=== PATIENT | male | born 1970 | race Caucasian/White ===

== ENCOUNTER 2023-12-16 16:39 | Outpatient (REF) | payer BC, SELFPAY ==
[2023-12-16 21:24] LABS: ALT 31 U/L (16-63); AST 17 U/L (15-37); Albumin 4.1 g/dL (3.4-5.0); Alkaline Phosphatase 81 U/L (46-116); Anion Gap 7.2 mmol/L (3-11); BUN 25 mg/dL (7-18); Bilirubin, Total 0.4 mg/dL (0.2-1.0); CO2 29.8 mmol/L (21.0-32.0); CREATININE 0.9 mg/dL (0.70-1.30); Calcium 8.9 mg/dL (8.5-10.1); Calculated LDL 115 mg/dL (<100); Chloride 106 mmol/L (98-107); Cholesterol 206 mg/dL (<200); Estimated GFR 101.49 (mL/min/1.73m2); Glucose 111 mg/dL (74-106); HDL Cholesterol 63 mg/dL (40-60); Potassium 4.5 mmol/L (3.5-5.1); Sodium 143 mmol/L (136-145); Total Protein 7.1 g/dL (6.4-8.2); Triglyceride 141 mg/dL (<150)
[2023-12-19 10:06] LABS: PSA, Screening 1.7 ng/mL (<=3.5)
== END 2023-12-16 16:40 | disposition home or self-care (01) ==
LOC: NCHCN 16:39
PROVIDERS: Visit Provider Family Medicine
DX: Z13.220 Encounter for screening for lipoid disorders (principal); Z12.5 Encounter for screening for malignant neoplasm of prostate
CPT/HCPCS: 80053; 80061; 84153

== ENCOUNTER 2024-05-28 10:02 | Day surgery (SDC) | payer BC, SELFPAY ==
--- NOTE | 2024-05-27 20:02 | W.PM.DSUDISC ---
Date of service: 05/28/24 Time of Service: 12:31 Discharge Plan Disposition Patient Disposition: Home Condition: Good Discharge Details Reason For Visit: screening colonoscopy Attending Provider: Lamin Vick Primary Care Provider: Keri Elam Home Meds and New Rx's Prescriptions: Continued tadalafil 5 mg tablet 5 mg PO DAILY Discontinued bisacodyl [Dulcolax (bisacodyl)] 5 mg tablet,delayed release (DR/EC) 5 mg PO ONCE Qty: 4 0RF Rx Instructions: Take per colonoscopy instructions provided by ordering providers office polyethylene glycol 3350 17 gram/dose powder 17 g PO ONCE Qty: 238 0RF Rx Instructions: Take per colonoscopy instructions provided by ordering providers office Discharge Instructions Instructions: Colon polyps Additional Instructions: GI do, we were able to complete your colonoscopy today without much difficulty. There is a little bit of inflammation in the bottom part of your rectum that is very common after a bowel prep. Given your history, however, I did do some biopsies just to rule out other forms of inflammatory colon disease. I also found 1 small polyp, which I removed today. Like we talked about beforehand, all of the stuff will be sent off for testing, and the results of that are usually available in a week or 2. Soon as we have those, the office will be in touch with any other recommendations. If you have any questions in the meantime, please do not hesitate to call. 1. If tolerated, consume a soft, low fiber diet for 1-2 days. 2. Do not drive, drink alcohol, operate machinery, make critical decisions, or do activities that require coordination or balance for 24 hours. 3. Because air was put into your colon during the procedure, expelling air from your rectum (passing gas or farting) is normal. 4. You may not have a bowel movement for 1-3 days because of the colonoscopy prep. This is normal. 5. Go directly to the emergency room if you notice any of the following: Develop chills (warm to touch), or if you have a thermometer and your temperature is above 101 Difficulty breathing or difficultly swallowing Persistent vomiting Severe abdominal pain, other than gas cramps Severe chest pain Black, tarry stools Any bleeding ? exceeding one tablespoon 6. Call your physician if the site where your intravenous was started becomes red, swollen, painful, and warm to touch. 7. Your physician has reviewed your pre-procedure medications. Please continue to take those medications as previously ordered. You will be given specific information/education regarding any changes to your medications before leaving. Activity:: Activity as Tolerated Diet:: As Tolerated Discharge Orders Discharge Orders: Discharge Order (Routine); Ordered 05/27/24 Ordered By: Lamin Vick DS: Diagnosis Discharge Diagnosis (1) Encounter for screening colonoscopy: Status: Acute Asessment and Plan: Follow-up on biopsies and polypectomy results
--- NOTE | 2024-05-27 20:04 | W.COLOREPORT ---
Date of service: 05/28/24 Time of Service: 12:33 Colonoscopy Report Date of procedure: 05/28/24 Pre-op diagnosis general: screening colonoscopy Post-op diagnosis procedure note: other (Colon polyp) Procedure: colonoscopy with polypectomy and biopsies Surgeon: Lamin Vick Anesthesia Type: General:No Airway Estimated blood loss (mL): 5 Pathology: other (Biopsies of rectal inflammation, 0.25 cm colon polyp at 35 cm) Complications: None Disposition: same day Indications: Parag is a 53 year old man with a history of sigmoid colectomy for diverticulitis who needs a screening colonoscopy Prep: Miralax/Dulcolax Procedure Start Time: 12:07 Procedure End Time: 12:25 Retraction Time: 8 Findings: Mild proctitis, 0.25 cm colon polyp at 35 cm from the anus Procedure Description: After the induction of anesthesia, and with the patient in left lateral decubitus position, I began by performing an external anorectal exam.? Perineum and skin were normal, as was the anal verge.? There is a perianal skin tag that could be consistent with an old external hemorrhoid.? Next, I performed a digital rectal exam.? I did not appreciate any abnormal findings.? Next, I advanced a colonoscope into the rectal vault.? I performed retroflexion.? This appeared normal.? There was a little bit of inflammation in the distal rectum. The tissue was not particularly friable. Narrowband imaging was used to assist with analysis. Cold forceps biopsies were performed to rule out inflammatory bowel disease. The camera was advanced up to about 13 cm, where previous colectomy anastomosis was encountered. The anastomosis was widely patent. There is no pathology here. I was able to traverse it with ease.? The scope was noted to be in the cecum by identification of the ileocecal valve and appendiceal orifice.? I then began withdrawing the colonoscope using repeated irrigation as necessary for full evaluation of the colonic mucosa. Around 35 cm from the anal verge was a 0.25 cm flat polyp. This was removed with cold forceps without any difficulty. There was minimal bleeding. Once the scope was withdrawn to the level of the rectum, great care was taken to examine portions of the rectal folds.? Finally, the scope was withdrawn and the patient was brought to the same-day surgery recovery unit as the anesthetic wore off. ?The findings and instructions were shared with the patient prior to discharge. New[place]n Bowel Prep Newbern Bowel Prep Right Colon: 3 Left Colon: 3 Transverse Colon: 3 Total Score: 9
[2024-05-28 10:30] VITALS: BP 113/81; PULSE 61; RESP 16; TEMP 35.9; O2SAT 97
[2024-05-28] MEDS: Lactated Ringers 1,000 ML 80 ML IV (10:52)
[2024-05-28 11:38] VITALS: BMI 25.4
--- NOTE | 2024-05-28 11:38 | W.ANESPRE ---
General Info Date of Service Date Performed: 05/28/24 Height: 6 ft 1 in Weight: 87.543 kg Body Mass Index (BMI): 25.4 Surgical Procedure: Operation Date: 05/28/24 12:05 Proposed Procedure Side Surgeon p Shreyas Vick MD Meds Allergies and Home Medications Allergies Allergy/AdvReac Type Severity Reaction Status Date / Time No Known Allergies Allergy Verified 05/28/24 10:40 Home Medication ?Medication ?Instructions ?Recorded tadalafil 5 mg tablet 5 mg PO DAILY 02/01/24 Current Visit Medications: Current Medications Generic Name Dose Route Start Last Admin Trade Name Freq PRN Reason Stop Dose Admin Ringer's Solution 1,000 mls @ 80 mls/hr 05/28/24 06:00 05/28/24 10:52 IV 06/24/24 23:59 80 mls/hr INFUSION SMITHA Administration IV Miscellaneous Supplies 1 each 05/28/24 06:00 Iv Access IV 06/24/24 23:59 DIRECTED SMITHA Ondansetron HCl 4 mg 05/27/24 20:06 Ondansetron 4 Mg/2 Ml Vial IVP 06/26/24 20:05 Q4H PRN PRN Nausea / Vomiting Sodium Chloride 0 ml 05/28/24 06:00 Normal Saline Flush 10 Ml Syr IV 06/24/24 23:59 PRN PRN Sodium Chloride 0 ml 05/28/24 06:00 Normal Saline 10 Ml Vial IJ 06/24/24 23:59 DIRECTED PRN Sterile Water 0 ml 05/28/24 06:00 Water,Injection,Sterile 10 Ml Vial IJ 06/24/24 23:59 DIRECTED PRN PFSH Active Problems Active Problems: Problem Status Onset Code Encounter for screening colonoscopy Acute Z12.11 History of alcoholism Acute F10.21 Genital herpes simplex Acute A60.00 Medical History Medical History (Updated 05/27/24 @ 20:02 by Lamin Vick MD) History of meningitis History of Lyme disease Hearing loss Surgical History Surgical History History of colostomy reversal History of colon resection (~2011) Tobacco Smoking/Tobacco Use Status: Former Tobacco Use Alcohol Alcohol Intake: former Substance Use Substance use: Rarely Substance use type: marijuana Vital Signs and Lab Results Vital Signs Most Recent Vital Signs in EMR: Most Recent Vital Signs Temp Pulse Resp BP Pulse Ox 35.9 C L 61 16 113/81 97 05/28/24 10:30 05/28/24 10:30 05/28/24 10:30 05/28/24 10:30 05/28/24 10:30 Lab Results Blood Type / Crossmatch: No Data to Display Complete Blood Count: No Data to Display Complete Metabolic Panel: No Data to Display Liver Function Panel: No Data to Display Coagulation Panel: No Data to Display Cardiac Panel: No Data to Display Arterial Blood Gas: No Data to Display Venous Blood Gas: No Data to Display Pancreas Panel: No Data to Display Thyroid Panel: No Data to Display Infectious Disease: No Data to Display Blood Cultures: No Data to Display Toxicology Panel: No Data to Display Anesthesia Assessment and Plan Anesthesia History Personal History: No History of Anesthesia Complications Family History: No Family History of Anesthesia Complications Exercise Tolerance Exercise Tolerance: Metabolic Equivalents>4 Pertinent Negatives Pertinent Negatives: No Symptoms of GERD Cardiac & Pulmonary Exam Cardiac Exam: Normal S1/S2 Heart Sounds Pulmonary Exam: Clear Bilateral Breath Sounds Implantable Cardiac Device Does patient have a Pacemaker or an ICD?: No Airway Exam Known Difficult Airway: No Mallampati Class: 2 Mouth Opening: Normal (> 3cm) Thyromental Distance: Greater than 3 cm Neck Range of Motion: Full ROM Neck Circumference: Normal Teeth Condition: Normal Dentition ASA Classification ASA Score: ASA 2 Emergency Case?: No NPO Status NPO Status: NPO Clears >2 hours, Solids >8 hours Anesthesia Plan Resuscitation Status: Full Code Anesthesia Technique: General Anesthesia Airway Planned: Natural Airway Monitors Used: Standard Monitors
--- NOTE | 2024-05-28 12:09 | BOWEL_PTH ---
PATIENT: Parag Robin LOC: [facility] U#:[id number] AGE/SX: 53/M ROOM: RE05/28/[address]: Lamin Vick MD : 1970 BED: DIS: 05/28/2024 SPEC #: [id number] RECD: 05/28/24 13:28 STATUS: ELDER REQ #: [id number] OTTONIEL: 05/28/24 12:[address]: Lamin Vick DEPT: Surgical Specimen RECD BY: Lucille Dow ENTERED: 05/28/24 13:30 SP TYPE: Bowel OTHR DR: Keri Elam Tissues: 1 - BIOPSY BOWEL 2 - BIOPSY BOWEL Procedures: GROSS AND MICRO LEVEL 4 Comments: [id number]
[2024-05-28 12:31] VITALS: BP 102/70; PULSE 61; RESP 16; TEMP 36.4; O2SAT 96
--- NOTE | 2024-05-28 12:37 | W.ANESPOSTOP ---
Postoperative Evaluation Date, Time and Location Date Performed: 05/28/24 Time Performed: 12:38 Patient Location: Day Surgery Unit Vital Signs Most Recent Imported Vital Signs: Most Recent Vital Signs Temp Pulse Resp BP Pulse Ox 36.4 C L 61 16 102/70 96 05/28/24 12:31 05/28/24 12:31 05/28/24 12:31 05/28/24 12:31 05/28/24 12:31 Pain Score Most Recent Pain Score: Most Recent Pain Score Pain Level 0 05/28/24 12:31 Assessment Mental Status: Awake (Alert & Oriented to Patient Baseline) Airway and Respiratory Function: Patent airway with normal (patient baseline) respiratory exam Cardiovascular Function: Hemodynamically Stable Hydration Status: Adequately Hydrated Nausea & Vomiting: No Nausea or Vomiting Pain: Pt. Denies Any Pain Peripheral Nerve Block: Patient did not receive a nerve block
[2024-05-28 13:01] VITALS: BP 102/73; PULSE 58; RESP 16; TEMP 35.8; O2SAT 98
== END 2024-05-28 13:17 | disposition home or self-care (01) ==
LOC: SUR 10:04
PROVIDERS: PCP Family Medicine; Visit Provider Surgery
PROC: 0DJD8ZZ Inspection of Lower Intestinal Tract, Via Natural or Artificial Opening Endoscopic (ICD-10-PCS; CPT 45378; principal; 2024-05-28 12:00)
DX: Z12.11 Encounter for screening for malignant neoplasm of colon (principal); D12.5 Benign neoplasm of sigmoid colon; K52.9 Noninfective gastroenteritis and colitis, unspecified
CPT/HCPCS: 45380; 88305; J2001; J2704

== ENCOUNTER 2024-09-27 18:32 | Outpatient (REF) | payer BC, SELFPAY ==
[2024-10-01 13:07] LABS: HBe Antibody Negative (Negative)
== END 2024-09-27 18:33 | disposition home or self-care (01) ==
LOC: NCHCN 18:32
PROVIDERS: PCP Family Medicine; Visit Provider Family Medicine
DX: Z00.00 Encounter for general adult medical examination without abnormal findings (principal)
CPT/HCPCS: 86707

== ENCOUNTER 2025-01-01 15:27 | Outpatient (REF) | payer BC, SELFPAY ==
[2025-01-03 10:27] LABS: Hepatitis C Ab w Rflx HCV PCR Negative (Negative)
== END 2025-01-01 15:28 | disposition home or self-care (01) ==
LOC: NCHCN 15:27
PROVIDERS: PCP Family Medicine; Visit Provider Physician Assistant
DX: Z20.5 Contact with and (suspected) exposure to viral hepatitis (principal)
CPT/HCPCS: 86803